=== PATIENT | female | born 1960 | race Hispanic/Latino ===

== ENCOUNTER 2018-08-04 12:56 | Emergency (ER) | payer BC ==
[2018-08-04] MEDS ORDERED: ONDANSETRON 4 MG/2 ML VIAL ONE (13:54)
[2018-08-04] MEDS ORDERED: DIAZEPAM 10 MG/2 ML INJ SYRINGE ONE (13:54)
[2018-08-04] MEDS ORDERED: MORPHINE 2 MG/ML SYR ONE (13:54)
[2018-08-04 14:25] LABS: Absolute Lymphocytes (CBC) 3.2 K/uL (0.7-4.9); Absolute Monocytes 0.7 K/uL (0.1-1.3); Basophils % 0.9 % (0-1.3); Eosinophils % 2.3 % (0-4.4); Hematocrit 50.5 % (36.0-45.0); MPV 9.1 fL (7.6-11.3); Monocytes % 10.2 % (3.3-12.3); RBC Red Blood Cell Count 5.31 M/uL (3.86-4.86)
[2018-08-04] MEDS ORDERED: DEXAMETHASONE 4 MG/ML VIAL ONE (14:45)
[2018-08-04] MEDS ORDERED: FENTANYL CITR 100 MCG/2 ML ONE (15:44)
--- NOTE | 2018-08-04 16:29 | RAD REPORT ---
EXAM DESCRIPTION: CT - Abdomen Pelvis W Contrast - 08/04/2018 4:15 pm CLINICAL HISTORY: Back pain, abdominal pain COMPARISON: CT February 2012 TECHNIQUE: Biphasic, helical CT imaging of the abdomen and pelvis was performed following 100 ml non -ionic IV contrast. No oral contrast given. All CT scans are performed using dose optimization technique as appropriate and may include automated exposure control or mA/KV adjustment according to patient size. FINDINGS: Posterior gutter stranding favored to be atelectasis rather than interstitial infiltrate. No pneumothorax or pleural effusion. No cardiomegaly or pericardial effusion. The liver, spleen, and pancreas show no suspicious findings. Gallbladder and biliary tree are also wi thout suspicious finding. Symmetric renal function is seen with no hydronephrosis or suspicious renal mass. No pyelonephritis o r acute parenchymal process. Small renal cysts are present. No urinary bladder abnormality. Uterus is absent. Ovaries are absent or atrophic. No adnexal abnormalities. No adrenal abnormalities. No gastric wall thickening or mass identifiable. There are multiple prominent but nondilated small alessandro wel loops. No acute colon finding. Appendectomy clips are present. Sigmoid is tortuous. No free air, free fluid or inflammatory stranding. No mass or bulky lymphadenopathy. A very small fat only umbil ical hernia is present. Minimal scattered vascular calcifications are present. No acute bone findings seen. Patient does have a very large L3-4 disc herniation causing significant mass effect on the thecal sac and central spinal stenosis. There is a probable disc bulge at L2-3 as well. IMPRESSION: Mildly prominent small bowel loops suggesting infectious/inflammatory enteritis. Very large L3-4 disc herniation causing central spinal stenosis.
[2018-08-04 16:43] LABS: ALT/SGPT 15 U/L (12-78); AST/SGOT 18 U/L (15-37); Albumin 3.7 g/dL (3.4-5.0); Alkaline Phosphatase 79 U/L (45-117); BUN Blood Urea Nitrogen 15 mg/dL (7-18); Bicarbonate 25 mmol/L (21-32); Bilirubin Direct 0.1 mg/dL (0-0.2); Bilirubin Total 0.3 mg/dL (0.2-1.0); Glucose Level 83 mg/dL (74-106); Lipase 87 U/L (73-393); Potassium 4.1 mmol/L (3.5-5.1); Protein, Total 7.2 g/dL (6.4-8.2); Sodium Level 141 mmol/L (136-145)
[2018-08-04] MEDS ORDERED: HYDROMORPHONE HCL 2 MG/ML inj ONE (17:03)
[2018-08-04] MEDS ORDERED: KETOROLAC 30 MG/ML INJ ONE (17:23)
--- NOTE | 2018-08-04 18:37 | EDPHYS ---
Physician Documentation [facility] Name: Genesis Villa Age: 57 yrs Sex: Female : 1960 Arrival Date: 08/04/2018 Time: 12:59 Bed 26 Private MD: ED Physician Otto Holt HPI: 08/04 13:34 This 57 yrs old Female presents to ER via EMS with complaints of Back Pain. jmm 13:34 The patient presents with pain that is acute. Onset: The symptoms/episode jmm began/occurred gradually, 3 week(s) ago. The pain radiates to the left leg. Associated signs and symptoms: Pertinent positives: weakness, Pertinent negatives: incontinence, numbness, urinary retention. This is a 57 year old female with a history of chronic back pain that presents to the ED with complaints of progressively worsening lower back pain over the past 3 weeks. Yesterday patient states she was unable to walk due to pain. Today she felt a pop in her back with intense pressure sensation. Patient states 2 years prior having a laser spine surgery performed in [place]. . Historical: - Allergies: 13:27 No Known Allergies; la1 - Home Meds: 13:27 None [Active]; la1 - PMHx: 13:28 None; la1 - Immunization history:: Adult Immunizations up to date. - Social history:: Smoking status: unknown. - Ebola Screening: : No symptoms or risks identified at this time. ROS: 13:34 Constitutional: Negative for fever, chills, and weight loss, Cardiovascular: Negative jmm for chest pain, palpitations, and edema, Respiratory: Negative for shortness of breath, cough, wheezing, and pleuritic chest pain, Abdomen/GI: Negative for abdominal pain, nausea, vomiting, diarrhea, and constipation. 13:34 Back: Positive for pain with movement. 13:34 MS/extremity: Positive for pain. 13:34 All other systems are negative. Exam: 13:34 Constitutional: This is a well developed, well nourished patient who is awake, alert, jmm and in no acute distress. Head/Face: atraumatic. Eyes: EOMI, no conjunctival erythema appreciated ENT: Moist Mucus Membranes Neck: Trachea midline, Supple Chest/axilla: Normal chest wall appearance and motion. Cardiovascular: Regular rate and rhythm. No edema appreciated Respiratory: Normal respirations, no respiratory distress appreciated Abdomen/GI: Non distended, soft 13:34 Back: pain, that is severe, ROM is painful, vertebral tenderness, is appreciated at L1, L2, L3 and L4. 13:34 Musculoskeletal/extremity: ROM: intact in all extremities, Pulses: noted to be 4+ in the right dorsalis pedis artery and left dorsalis pedis artery. 13:34 Skin: Appearance: Color: normal in color. 13:34 Neuro: Orientation: is normal, Mentation: is normal, Memory: is normal, 2+ right patellar reflex, no patellar reflex appreciated to the left, extensor hallucis longus intact bilaterally, normal rectal tone, no saddle paresthesias appreciated. 13:34 Psych: Behavior/mood is pleasant, cooperative. Vital Signs: 13:26 BP 129 / 90; Pulse 76; Resp 18; Pulse Ox 98% on R/A; la1 14:30 BP 138 / 71; Pulse 73; Resp 18; Temp 97.6; Pulse Ox 98% ; la1 15:37 BP 106 / 82; Pulse 82; Resp 18; Pulse Ox 98% on R/A; la1 17:21 BP 121 / 95; Pulse 72; Resp 18; Pulse Ox 98% on R/A; la1 MDM: 13:34 Patient medically screened. [facility] 17:56 Data reviewed: vital signs, nurses notes. Counseling: I had a detailed discussion with [facility] the patient and/or guardian regarding: the historical points, exam findings, and any diagnostic results supporting the discharge/admit diagnosis. 18:19 ED course: I discussed the patient with Neurology whom will consult on admission. I [facility] discussed the patient with Dr. Jones whom accepted admission/transfer. . 18:34 Data reviewed: lab test result(s), radiologic studies, CT scan. Counseling: I had a [facility] detailed discussion with the patient and/or guardian regarding: lab results, radiology results, the need to transfer to another facility. 08/04 13:35 Order name: Basic Metabolic Panel; Complete Time: 16:47 [facility] 08/04 13:35 Order name: CBC with Diff; Complete Time: 14:53 [facility] 08/04 13:35 Order name: Creatinine for Radiology; Complete Time: 14:45 [facility] 08/04 13:35 Order name: Hepatic Function; Complete Time: 16:47 [facility] 08/04 13:35 Order name: Lipase; Complete Time: 16:47 [facility] 08/04 13:35 Order name: CT Abd/Pelvis - W/Contrast; Complete Time: 16:31 [facility] 08/04 13:35 Order name: IV Saline Lock; Complete Time: 13:52 [facility] 08/04 13:35 Order name: Labs collected and sent; Complete Time: 13:52 [facility] 08/04 17:23 Order name: Misc. Order: ambulate the patient; Complete Time: 18:31 [facility] Administered Medications: 13:51 Drug: Valium 5 mg Route: IVP; Site: left antecubital; la1 14:43 Follow up: Response: No adverse reaction; Pain is decreased la1 13:52 Drug: Zofran 4 mg Route: IVP; Site: left antecubital; la1 14:43 Follow up: Response: No adverse reaction la1 14:21 Drug: morphine 2 mg Route: IVP; Site: left antecubital; la1 14:43 Follow up: Response: No adverse reaction la1 14:43 Drug: Decadron - Dexamethasone 10 mg Route: IVP; Site: left antecubital; la1 14:43 Follow up: Response: No adverse reaction la1 16:02 Drug: fentaNYL (PF) 50 mcg Route: IVP; Site: left antecubital; la1 17:22 Follow up: Response: No adverse reaction; Pain is decreased la1 16:56 Drug: Dilaudid 1 mg Route: IVP; Site: left antecubital; rv 17:22 Follow up: Response: No adverse reaction; Pain is decreased la1 17:15 Drug: Ketorolac 30 mg Route: IVP; Site: left antecubital; sg 17:22 Follow up: Response: No adverse reaction; Pain is decreased la1 19:32 Drug: fentaNYL (PF) 50 mcg Route: IVP; Site: left antecubital; la1 Disposition: 08/04/18 18:37 Transfer ordered to [facility]. Diagnosis are Sciatica, left side, Weakness, Intractable Pain. - Reason for transfer: Higher level of care. - Accepting physician is Kumal. - Condition is Stable. - Problem is an acute exacerbation. - Symptoms are unchanged. Addendum: 08/06/2018 07:48 Co-signature as Attending Physician, Otto Jonathon MD I agree with the assessment and c saleh plan of care. Signatures: Dispatcher [employer] EDRamiro Corral, RN RN Otto Ramirez MD MD cha Mickail, Joel, PA PA jmm Chretien, Felicia, RN RN fc Bryon Saenz RN RN la1 Carlo Wilder RN RN rv Corrections: (The following items were deleted from the chart) 08/04 20:15 18:37 08/04/2018 18:37 Transfer ordered to [facility]. Diagnosis is fc Sciatica, left side; Weakness; Intractable Pain. Reason for transfer: Higher level of care. [facility] Condition is Stable. Problem is an acute exacerbation. Symptoms are unchanged. alex
--- NOTE | 2018-08-04 18:37 | ER ---
Nurse's Notes [facility] Name: Genesis Villa Age: 57 yrs Sex: Female : 1960 Arrival Date: 08/04/2018 Time: 12:59 Bed 26 Private MD: Diagnosis: Sciatica, left side;Weakness;Intractable Pain Presentation: 08/04 12:59 Presenting complaint: Patient states: I had back sx on my right lower back one year la1 ago, about 3 weeks ago I did something to it while walking and it has been hurting since. Pt has been taking T3 at home but not having any relief. Transition of care: patient was not received from another setting of care. Onset of symptoms was August 04, 2018. Risk Assessment: Do you want to hurt yourself or someone else? Patient reports no desire to harm self or others. Initial Sepsis Screen: Does the patient meet any 2 criteria? No. Patient's initial sepsis screen is negative. Does the patient have a suspected source of infection? No. Patient's initial sepsis screen is negative. Care prior to arrival: IV initiated. 22 GA, in the left antecubital area. 12:59 Method Of Arrival: EMS: [facility] la1 12:59 Acuity: SCOTT 3 la1 Historical: - Allergies: 13:27 No Known Allergies; la1 - Home Meds: 13:27 None [Active]; la1 - PMHx: 13:28 None; la1 - Immunization history:: Adult Immunizations up to date. - Social history:: Smoking status: unknown. - Ebola Screening: : No symptoms or risks identified at this time. Screenin:04 Abuse screen: Denies threats or abuse. Denies injuries from another. Nutritional la1 screening: No deficits noted. Tuberculosis screening: No symptoms or risk factors identified. Fall Risk None identified. Assessment: 14:03 General: Appears in no apparent distress. Behavior is cooperative. Pain: Complains of la1 pain in lumbar area and right low back. Neuro: Level of Consciousness is awake, alert, obeys commands, Oriented to person, place, time, situation. Neuro: Pt denies loss of urinary or bowel continence, denies numbness, tingling, CMS intact. Cardiovascular: Capillary refill < 3 seconds Patient's skin is warm and dry. Respiratory: Airway is patent Respiratory effort is even, unlabored, Respiratory pattern is regular, symmetrical. GI: No signs and/or symptoms were reported involving the gastrointestinal system. : No signs and/or symptoms were reported regarding the genitourinary system. 15:05 Reassessment: No changes from previously documented assessment. Patient and/or family la1 updated on plan of care and expected duration. Pain level reassessed. Patient is alert, oriented x 3, equal unlabored respirations, skin warm/dry/pink. 17:21 Reassessment: Patient appears in no apparent distress at this time. No changes from la1 previously documented assessment. Patient and/or family updated on plan of care and expected duration. Pain level reassessed. Patient is alert, oriented x 3, equal unlabored respirations, skin warm/dry/pink. 18:30 Reassessment: Pt unable to ambulate in room due to pain. CMS intact in all extremities. la1 Vital Signs: 13:26 BP 129 / 90; Pulse 76; Resp 18; Pulse Ox 98% on R/A; la1 14:30 BP 138 / 71; Pulse 73; Resp 18; Temp 97.6; Pulse Ox 98% ; la1 15:37 BP 106 / 82; Pulse 82; Resp 18; Pulse Ox 98% on R/A; la1 17:21 BP 121 / 95; Pulse 72; Resp 18; Pulse Ox 98% on R/A; la1 ED Course: 12:59 Patient arrived in ED. la1 13:00 Triage completed. la1 13:00 Arm band placed on left wrist. la1 13:16 [facility] Hutchison [facility] 13:16 Otto Holt MD is Attending Physician. jm 13:26 Bryon Saenz, MIR is Primary Nurse. la1 14:04 Bed in low position. Call light in reach. finger grip machine operator on. Pulse ox on. NIBP on. la1 14:04 Maintain EMS IV. Dressing intact. Good blood return noted. Site clean \T\ dry. Gauge \T\ la 1 site: 22g lac. 15:39 Radiology exam delayed due to lab results not completed at this time. (BUN/Creatinine). kw1 16:15 CT Abd/Pelvis - W/Contrast In Process Unspecified. EDMS 16:24 CT completed. Patient tolerated procedure well. Patient moved back from CT. mw3 18:30 Bladder scan completed. 277cc pre void, 0 cc post void. la1 Administered Medications: 13:51 Drug: Valium 5 mg Route: IVP; Site: left antecubital; la1 14:43 Follow up: Response: No adverse reaction; Pain is decreased la1 13:52 Drug: Zofran 4 mg Route: IVP; Site: left antecubital; la1 14:43 Follow up: Response: No adverse reaction la1 14:21 Drug: morphine 2 mg Route: IVP; Site: left antecubital; la1 14:43 Follow up: Response: No adverse reaction la1 14:43 Drug: Decadron - Dexamethasone 10 mg Route: IVP; Site: left antecubital; la1 14:43 Follow up: Response: No adverse reaction la1 16:02 Drug: fentaNYL (PF) 50 mcg Route: IVP; Site: left antecubital; la1 17:22 Follow up: Response: No adverse reaction; Pain is decreased la1 16:56 Drug: Dilaudid 1 mg Route: IVP; Site: left antecubital; rv 17:22 Follow up: Response: No adverse reaction; Pain is decreased la1 17:15 Drug: Ketorolac 30 mg Route: IVP; Site: left antecubital; sg 17:22 Follow up: Response: No adverse reaction; Pain is decreased la1 19:32 Drug: fentaNYL (PF) 50 mcg Route: IVP; Site: left antecubital; la1 Outcome: 18:37 ER care complete, transfer ordered by MD. johnson 20:15 Patient left the ED. fc Signatures: Dispatcher [employer] EDMS Ramiro Thacker RN Nolan Hurley PA PA jmm Chretien, Felicia, RN RN Bryon Saenz RN RN Katharine Longo Michelle mw3 Carlo Wilder RN RN rv
[2018-08-04 20:30] VITALS: O2SAT 98
[2018-08-04 20:32] VITALS: TEMP 97.6
[2018-08-04 20:34] VITALS: BP 121/95
== END 2018-08-04 20:15 | disposition short-term general hospital (02) ==
LOC: ER 12:56
DX: M54.32 Sciatica, left side (principal); R53.1 Weakness
CPT/HCPCS: 36415; 74177; 80048; 80076; 83690; 85025; 96374; 96375; 99285; J1170; J2270; J2405; J3010; J3360

== ENCOUNTER 2019-09-20 19:12 | Emergency (ER) | payer BC ==
--- OUTSIDE RECORDS SUMMARY | 2019-09-20 19:16 | XMS REPORT ---
:1960 Author Organization [facility] t Address [address] [place] [address] Care Team Providers Name Role Phone AYLEEN BUCIO Unavailable Unavailable Problems This patient has no known problems. Allergies, Adverse Reactions, Alerts This patient has no known allergies or adverse reactions. Medications This patient has no known medications. Results Test Description Test Time Test Comments Text Results Atomic Results Result Comments RAD, SPINE, 2018-12-31 Reason for FINAL REPORT PATIENT ID: LUMBAR, COMPLETE 11:13:00 Exam:->lumbar [id number] Exam: Lumbar (MIN 4 VIEWS) radiculopathy spine AP lateral flexion-extension History: Back pain Comparison: None. Findings: No fracture. Degenerative disc disease at L3-L4 extending to L5-S1, most prominent at L4-L5. Lower lumbar facet arthrosis. No hypermobility on flexion-extension. Impression: No acute osseous abnormality Lumbar spondyloarthropathy most advanced at L4-L5 Signed: Caio Whitney Verified Date/Time: 12/31/2018 11:13:38 Reading Location: [facility] Reading Room [address] [place] [address] LE EMG, 2 2018-10-24 EXTREMITY 15:58:00 INTRAOPERATIVE MONITORING REPORT Patient Name: Genesis Villa [facility] Surgery Date: 08/07/18 [place] Pro: [id number] Monitoring began at 1517 and ended at 1645 Surgeon: Franky Bell M.D. Examining Physician : Stanley Rodriguez M.D. Monitoring Technologist: THO Castillo Procedure: L3-4 Lami/Disc Free-running EMG of bilateral Vastus Lateralis (L2-4) and Tibialis Anterior (L4-L5) muscle groups Description : Intraoperative neurophysiological monitoring was performed using free-running EMGs. A real-time connection with the examining neurologist was established and maintained throughout the operative procedure by the monitoring technologist. Free-running EMG of L2-L5 nerve roots was monitored with no firing seen in any muscle groups at baselines. Some sporadic EMG firing was seen during case; surgeon aware. At closing, no firing seen in any muscle groups. No changes were noted from baselines throughout the case and at closing. Surgeon aware of all responses during case and at closing. Stanley Rodriguez M.D. M54.16, M54.10, M79.2 UE EXAM 2018-08-16 Surgical Pathology Report 19:02:00 Case: [id number] Authorizing Provider: Franky Bell MD Collected: 08/07/2018 1645 Ordering Location: [facility] PERIOPERATIVE Received: 08/08/2018 0814 SERVICES Pathologist: Kelvin Palencia MD Specimen: Disc L3-4 VERTEBRAL COLUMN, INTERVERTEBRAL DISC, DISCECTOMY:FRAGMENTS OF FIBROCARTILAGE WITH MILD DEGENERATIVE CHANGES Signing Pathologist Direct Phone Line: [phone] signed by Kelvin Palencia MD on 08/16/2018 at 7:02 [id number]; [id number] nucleus pulposus of the lumbar A. Disc L3-4The specimen is received in saline labeled with the patient's information and labeled "disc L3-4" and consists of coronado-pink fibrocartilaginous tissue measuring 3 x 1 x 1 cm . The specimen is sectioned and submitted entirely A1 for decalcification. CG/pl Performed BASIC METABOLIC PANEL 2018-08-09 04:56:00 Test Item Value Reference Range Comments SODIUM (BEAKER) (test code = 140 meq/L 136-145 381) POTASSIUM (BEAKER) (test 3.9 meq/L 3.5-5.1 code = 379) CHLORIDE (BEAKER) (test code 108 meq/L 98-107 = 382) CO2 (BEAKER) (test code = 26 meq/L 22-29 355) BLOOD UREA NITROGEN (BEAKER) 17 mg/dL 7-21 (test code = 354) CREATININE (BEAKER) (test 0.63 mg/dL 0.57-1.25 code = 358) GLUCOSE RANDOM (BEAKER) 96 mg/dL 70-105 (test code = 652) CALCIUM (BEAKER) (test code 9.1 mg/dL 8.4-10.2 = 697) EGFR (BEAKER) (test code = 97 mL/min/1.73 sq m E STIMATED GFR IS NOT 1092) ACCURATE CREA TININE CLEARANCE IN PRE DICTING GLOMERULAR FILTR ATION RATE. ESTIMATED GFR IS NOT APPLICABLE FOR D IALYSIS PATIENTS. CBC (HEMOGRAM ONLY)2018-08-09 04:39:00 Test Item Value Reference Range Comments WHITE BLOOD CELL COUNT (BEAKER) (test code = 11.8 K/ L 3.5 -10.5 775) RED BLOOD CELL COUNT (BEAKER) (test code = 761) 4.76 M/ L 3.93-5.22 HEMOGLOBIN (BEAKER) (test code = 410) 15.2 GM/DL 11.2-15.7 HEMATOCRIT (BEAKER) (test code = 411) 44.9 % 34.1-44.9 MEAN CORPUSCULAR VOLUME (BEAKER) (test code = 94.3 fL 79 .4-94.8 753) MEAN CORPUSCULAR HEMOGLOBIN (BEAKER) (test code 31.9 pg 25.6-32.2 = 751) MEAN CORPUSCULAR HEMOGLOBIN CONC (BEAKER) (test 33.9 GM/DL 32.2-35.5 code = 752) RED CELL DISTRIBUTION WIDTH (BEAKER) (test code 14.0 % 11.7-14.4 = 412) PLATELET COUNT (BEAKER) (test code = 756) 220 K/CU MM 150-45 0 MEAN PLATELET VOLUME (BEAKER) (test code = 754) 10.2 fL 9.4-12.3 NUCLEATED RED BLOOD CELLS (BEAKER) (test code = 0 /100 WBC 0-0 413) RAD, SPINE, LUMBAR, 1 [id number] 16:51:00Reason for exam:->lumbar spine FINAL REPORT TECHNIQUE: Lateral view of the lumbosacral spine dated 08/07/2018. HISTORY: Lumbar spine. COMPARISON: None. Impression:Intraoperative radiograph of the lumbosacral spine was obtained. There is a radiodense marker projects over the spinous process at the level of L3-L4. No fracture or malalignment. Bones appear osteopenic. Signed: Iván Fermin MDReport Verified Date/Time: 08/07/2018 16:51:07 Reading Location: [facility] Radiology Reading Room RAD, SPINE, LUMBAR, 1 [id number] 16:13:00Reason for exam:->lumbar spineFINAL REPORT Lumbar spine date 08/07/2018 Comment: Single view of the lumbar spine was submitted for interpretation.A metallic localizer is at L3-4 vertebral level. I was not able to reach Dr. Bell for Stat reading. Signed: Samson Rueda MDReport Verified Date/Time: 08/07/2018 16:13:28 Reading Location: [facility] B1 C013Y CT Body Reading Room , CARDIAC PERFUSION MULTIPLE STUDIES, REST AND [id number] 13:55:00 Reason for exam:->chest painReason for exam:->pre-operative evaluation for back surgeryFINAL REPORT PROCEDURE: Rest/Stress MYOCARDIAL PERFUSION PET with regadenoson\\XA9\\ CPT CODE: 38637 INDICATION: Chest pain. Preoperative risk stratification for spinalsurgery/laminectomy HISTORY: Cardiac risk factors: Tobacco abuse. Other cardiovascular history: History of myocardial infarction. Recent cardiac symptoms: Chest pain. Current cardiovascular-relatedmedications: Lipitor. PROTOCOL: Limited low-dose CT imaging was performed for attenuation correction. 23.4 mCi of Rb-82 chloride was injected iv at rest. Given infiltration another dose of 40.0 mCiof Rb--82 chloride was injected at rest, and gated PET (positron emission tomography) images were obtained. Subsequently, 40.0 mCi of Rb-82 chloride was injected iv at expected peak pharmacologic effect, and gated PET images were obtained. PRELIMINARY STRESS TEST DATA FROM NONINVASIVE CARDIOLOGY:Pharmacologic stress was by 10-second iv infusion of 0.4 mg of regadenoson. Radiotracer was injected 30 seconds after start of stress. Heart rate was 79 beats/min at rest and 105 beats/min (64% of MPHR) at tracer injection. BP was 118/77 mmHg at rest and 138/82 mmHg at tracer injection. Stress was stopped for predetermined endpoint. The patient experienced dyspnea and palpitations; treatment was not required. Preliminary ECG evaluation revealed sinus rhythm at rest and no ischemic changes with stress. (Final ECG interpretation and other stress and monitoring data are reported separately by Cardiology.) IMAGING FINDINGS: Study quality is good. Images obtained after rest and stress injections show normal LV activity. LV and RV volumes appear normal. Gated images obtained at rest and with stress show normal LV wall motion and thickening. LVEF at rest is greater than 70%. LVEF at stress is greater than 70%. IMPRESSION: 1. Normal study. 2. Appropriate pharmacologic stress. 3. Normal myocardial perfusion. 4. Normal resting LV function. No deterioration of function is noted with pharmacologic stress. 5. Normal extracardiac tracer distribution. 6. CT images show small bilateral pleural effusions 7. No previous [facility] study for comparison. NONINVASIVE RISK STRATIFICATION: The above findings are considered low risk (<1% annual mortality rate) based on the following criterion:- Normal or small myocardial perfusion defect at rest or with stress(JACC. 2012;59(9):857- 81.) Signed: Danilo Mackey MDReport Verified Date/Time: 08/07/2018 13:55:17 Reading Location: [address] Reading Room CBC W/PLT COUNT & AUTO [id number] 06:55:00 Test Item Value Reference Range Comments WHITE BLOOD CELL COUNT 8.9 K/ L 3.5-10.5 (BEAKER) (test code = 775) RED BLOOD CELL COUNT (BEAKER) 4.82 M/ L 3.93-5.22 (test code = 761) HEMOGLOBIN (BEAKER) (test code 15.1 GM/DL 11.2-15.7 = 410) HEMATOCRIT (BEAKER) (test code 49.4 % 34.1-44.9 = 411) MEAN CORPUSCULAR VOLUME 102.5 fL 79.4-94.8 DISCORDA NT FROM PREVIOUS (BEAKER) (test code = 753) RESUL TS MEAN CORPUSCULAR HEMOGLOBIN 31.3 pg 25.6-32.2 (BEAKER) (test code = 751) MEAN CORPUSCULAR HEMOGLOBIN 30.6 GM/DL 32.2-35.5 CONC (BEAKER) (test code = 752) RED CELL DISTRIBUTION WIDTH 14.3 % 11.7-14.4 (BEAKER) (test code = 412) PLATELET COUNT (BEAKER) (test 191 K/CU MM 150-450 code = 756) MEAN PLATELET VOLUME (BEAKER) 10.0 fL 9.4-12.3 (test code = 754) NUCLEATED RED BLOOD CELLS 0 /100 WBC 0-0 (BEAKER) (test code = 413) NEUTROPHILS RELATIVE PERCENT 39 % (BEAKER) (test code = 429) LYMPHOCYTES RELATIVE PERCENT 50 % (BEAKER) (test code = 430) MONOCYTES RELATIVE PERCENT 8 % (BEAKER) (test code = 431) EOSINOPHILS RELATIVE PERCENT 2 % (BEAKER) (test code = 432) BASOPHILS RELATIVE PERCENT 1 % (BEAKER) (test code = 437) NEUTROPHILS ABSOLUTE COUNT 3.46 K/ L 1.56-6.13 (BEAKER) (test code = 670) LYMPHOCYTES ABSOLUTE COUNT 4.45 K/ L 1.18-3.74 (BEAKER) (test code = 414) MONOCYTES ABSOLUTE COUNT 0.73 K/ L 0.24-0.36 (BEAKER) (test code = 415) EOSINOPHILS ABSOLUTE COUNT 0.21 K/ L 0.04-0.36 (BEAKER) (test code = 416) BASOPHILS ABSOLUTE COUNT 0.07 K/ L 0.01-0.08 (BEAKER) (test code = 417) IMMATURE GRANULOCYTES-RELATIVE 0 % 0-1 PERCENT (BEAKER) (test code = 2801) BASIC METABOLIC [id number] 06:22:00 Test Item Value Reference Range Comments SODIUM (BEAKER) (test 139 meq/L 136-145 code = 381) POTASSIUM (BEAKER) (test 4.7 meq/L 3.5-5.1 Specime n slightly code = 379) hemolyzed CHLORIDE (BEAKER) (test 110 meq/L 98-107 code = 382) CO2 (BEAKER) (test code = 23 meq/L 22-29 355) BLOOD UREA NITROGEN 11 mg/dL 7-21 (BEAKER) (test code = 354) CREATININE (BEAKER) (test 0.58 mg/dL 0.57-1.25 Specim en slightly code = 358) hemolyzed GLUCOSE RANDOM (BEAKER) 71 mg/dL 70-105 (test code = 652) CALCIUM (BEAKER) (test 8.9 mg/dL 8.4-10.2 code = 697) EGFR (BEAKER) (test code 107 mL/min/1.73 sq m ES TIMATED GFR IS NOT = 1092) ACCURATE CREA TININE CLEARANCE IN PRE DICTING GLOMERULAR FILTR ATION RATE. ESTIMATED GFR IS NOT APPLICABLE F OR DIALYSIS PATIENT S. HEPATIC FUNCTION [id number] 06:22:00 Test Item Value Reference Range Comments TOTAL PROTEIN (BEAKER) (test 6.0 gm/dL 6.0-8.3 Spe cimen slightly hemolyzed code = 770) ALBUMIN (BEAKER) (test code = 3.3 g/dL 3.5-5.0 Sp ecimen slightly hemolyzed 1145) BILIRUBIN TOTAL (BEAKER) (test 0.2 mg/dL 0.2-1.2 S pecimen slightly hemolyzed code = 377) BILIRUBIN DIRECT (BEAKER) (test 0.1 mg/dL 0.1-0.5 Specimen slightly hemolyzed code = 706) ALKALINE PHOSPHATASE (BEAKER) 54 U/L 40-150 (test code = 346) AST (SGOT) (BEAKER) (test code 23 U/L 5-34 S pecimen slightly hemolyzed = 353) ALT (SGPT) (BEAKER) (test code 11 U/L 6-55 S pecimen slightly hemolyzed = 347) [id number] 06:16:00 Test Item Value Reference Range Comments PARTIAL THROMBOPLASTIN TIME (BEAKER) (test code 30.8 seconds 22.5-36.0 = 760) PROTHROMBIN [id number] 06:15:00 Test Item Value Reference Range Comments PROTIME (BEAKER) (test code = 759) 12.2 seconds 11.7-14.7 INR (BEAKER) (test code = 370) 0.9 <=5.9 RECOMMENDED COUMADIN/WARFARIN INR THERAPY RANGESSTANDARD DOSE: 2.0 - 3.0 Includes: PROPHYLAXIS forvenous thrombosis, systemic embolization; TREATMENT for venous thrombosis and/or pulmonary embolus.HIGH RISK: Target INR is 2.5-3.5 for patients with mechanical heart valves.B-TYPE NATRIURETIC FACTOR (BNP)2018-08-06 18:42:00 Test Item Value Reference Range Comments B-TYPE NATRIURETIC PEPTIDE (BEAKER) (test code = 189 pg/mL 0-100 700) CBC W/PLT COUNT & AUTO [id number] 09:46:00 Test Item Value Reference Range Comments WHITE BLOOD CELL COUNT (BEAKER) (test code = 11.4 K/ L 3.5 -10.5 775) RED BLOOD CELL COUNT (BEAKER) (test code = 761) 4.51 M/ L 3.93-5.22 HEMOGLOBIN (BEAKER) (test code = 410) 14.5 GM/DL 11.2-15.7 HEMATOCRIT (BEAKER) (test code = 411) 43.7 % 34.1-44.9 MEAN CORPUSCULAR VOLUME (BEAKER) (test code = 96.9 fL 79 .4-94.8 753) MEAN CORPUSCULAR HEMOGLOBIN (BEAKER) (test code 32.2 pg 25.6-32.2 = 751) MEAN CORPUSCULAR HEMOGLOBIN CONC (BEAKER) (test 33.2 GM/DL 32.2-35.5 code = 752) RED CELL DISTRIBUTION WIDTH (BEAKER) (test code 14.2 % 11.7-14.4 = 412) PLATELET COUNT (BEAKER) (test code = 756) 209 K/CU MM 150-45 0 MEAN PLATELET VOLUME (BEAKER) (test code = 754) 10.0 fL 9.4-12.3 NUCLEATED RED BLOOD CELLS (BEAKER) (test code = 0 /100 WBC 0-0 413) (CELLAVISION MANUAL DIFF)2018-08-06 09:46:00 Test Item Value Reference Range Comments NEUTROPHILS - REL (CELLAVISION)(BEAKER) (test code 62 % = 2816) LYMPHOCYTES - REL (CELLAVISION)(BEAKER) (test code 30 % = 2817) MONOCYTES - REL (CELLAVISION)(BEAKER) (test code = 5 % 2818) BASOPHILS - REL (CELLAVISION)(BEAKER) (test code = 1 % 2820) ATYPICAL LYMPHOCYTES - REL (CELLAVISION)(BEAKER) 2 % 0-0 (test code = 2829) NEUTROPHILS - ABS (CELLAVISION)(BEAKER) (test code 7.07 K/ul 1.56-6.13 = 2830) LYMPHOCYTES - ABS (CELLAVISION)(BEAKER) (test code 3.42 K/ul 1.18-3.74 = 2831) MONOCYTES - ABS (CELLAVISION)(BEAKER) (test code = 0.57 K/uL 0.24-0.36 2832) BASOPHILS - ABS (CELLAVISION)(BEAKER) (test code = 0.11 K/uL 0.01-0.08 2835) ATYPICAL LYMPHOCYTES - ABS (CELLAVISION)(BEAKER) 0.23 K/uL 0.00-0.00 (test code = 2858) TOTAL COUNTED (BEAKER) (test code = 1351) 100 RBC MORPHOLOGY (BEAKER) (test code = 762) Normal WBC MORPHOLOGY (BEAKER) (test code = 487) Normal PLT MORPHOLOGY (BEAKER) (test code = 486) Normal ARTIFACT (CELLAVISION)(BEAKER) (test code = 3432) Present PLATELET CONCENTRATION (CELLAVISION)(BEAKER) (test Adequate code = 3438) Received comment: User comments: Slide comments:BASIC METABOLIC [id number] 05:47:00 Test Item Value Reference Range Comments SODIUM (BEAKER) (test 135 meq/L 136-145 code = 381) POTASSIUM (BEAKER) (test 3.9 meq/L 3.5-5.1 code = 379) CHLORIDE (BEAKER) (test 108 meq/L 98-107 code = 382) CO2 (BEAKER) (test code = 22 meq/L 22-29 355) BLOOD UREA NITROGEN 13 mg/dL 7-21 (BEAKER) (test code = 354) CREATININE (BEAKER) (test 0.57 mg/dL 0.57-1.25 code = 358) GLUCOSE RANDOM (BEAKER) 101 mg/dL 70-105 (test code = 652) CALCIUM (BEAKER) (test 8.3 mg/dL 8.4-10.2 code = 697) EGFR (BEAKER) (test code 109 mL/min/1.73 sq m ES TIMATED GFR IS NOT = 1092) ACCURATE CREA TININE CLEARANCE IN PRE DICTING GLOMERULAR FILTR ATION RATE. ESTIMATED GFR IS NOT APPLICABLE F OR DIALYSIS PATIENT S. HEPATIC FUNCTION [id number] 05:45:00 Test Item Value Reference Range Comments TOTAL PROTEIN (BEAKER) (test code = 770) 5.6 gm/dL 6.0-8.3 ALBUMIN (BEAKER) (test code = 1145) 3.2 g/dL 3.5-5.0 BILIRUBIN TOTAL (BEAKER) (test code = 377) 0.1 mg/dL 0.2-1 .2 BILIRUBIN DIRECT (BEAKER) (test code = 706) 0.1 mg/dL 0.1- 0.5 ALKALINE PHOSPHATASE (BEAKER) (test code = 346) 55 U/L 40-150 AST (SGOT) (BEAKER) (test code = 353) 15 U/L 5-34 ALT (SGPT) (BEAKER) (test code = 347) 9 U/L 6-55 PROTHROMBIN [id number] 05:35:00 Test Item Value Reference Range Comments PROTIME (BEAKER) (test code = 759) 12.8 seconds 11.7-14.7 INR (BEAKER) (test code = 370) 1.0 <=5.9 RECOMMENDED COUMADIN/WARFARIN INR THERAPY RANGESSTANDARD DOSE: 2.0 - 3.0 Includes: PROPHYLAXIS forvenous thrombosis, systemic embolization; TREATMENT for venous thrombosis and/or pulmonary embolus.HIGH RISK: Target INR is 2.5-3.5 for patients with mechanical heart valves.HEPATIC FUNCTION [id number] 06:43:00 Test Item Value Reference Range Comments TOTAL PROTEIN (BEAKER) (test code = 770) 6.7 gm/dL 6.0-8.3 ALBUMIN (BEAKER) (test code = 1145) 3.7 g/dL 3.5-5.0 BILIRUBIN TOTAL (BEAKER) (test code = 377) 0.3 mg/dL 0.2-1 .2 BILIRUBIN DIRECT (BEAKER) (test code = 706) 0.1 mg/dL 0.1- 0.5 ALKALINE PHOSPHATASE (BEAKER) (test code = 346) 65 U/L 40-150 AST (SGOT) (BEAKER) (test code = 353) 20 U/L 5-34 ALT (SGPT) (BEAKER) (test code = 347) 10 U/L 6-55 BASIC METABOLIC [id number] 06:43:00 Test Item Value Reference Range Comments SODIUM (BEAKER) (test 140 meq/L 136-145 code = 381) POTASSIUM (BEAKER) (test 4.3 meq/L 3.5-5.1 code = 379) CHLORIDE (BEAKER) (test 108 meq/L 98-107 code = 382) CO2 (BEAKER) (test code = 24 meq/L 22-29 355) BLOOD UREA NITROGEN 22 mg/dL 7-21 (BEAKER) (test code = 354) CREATININE (BEAKER) (test 0.70 mg/dL 0.57-1.25 code = 358) GLUCOSE RANDOM (BEAKER) 136 mg/dL 70-105 (test code = 652) CALCIUM (BEAKER) (test 9.8 mg/dL 8.4-10.2 code = 697) EGFR (BEAKER) (test code 86 mL/min/1.73 sq m EST IMATED GFR IS NOT = 1092) ACCURATE CREA TININE CLEARANCE IN PRE DICTING GLOMERULAR FILTR ATION RATE. ESTIMATED GFR IS NOT APPLICABLE F OR DIALYSIS PATIENT S. [id number] 06:33:00 Test Item Value Reference Range Comments PARTIAL THROMBOPLASTIN TIME (BEAKER) (test code 31.2 seconds 22.5-36.0 = 760) PROTHROMBIN TIME/[id number] 06:32:00 Test Item Value Reference Range Comments PROTIME (BEAKER) (test code = 759) 12.7 seconds 11.7-14.7 INR (BEAKER) (test code = 370) 0.9 <=5.9 RECOMMENDED COUMADIN/WARFARIN INR THERAPY RANGESSTANDARD DOSE: 2.0 - 3.0 Includes: PROPHYLAXIS forvenous thrombosis, systemic embolization; TREATMENT for venous thrombosis and/or pulmonary embolus.HIGH RISK: Target INR is 2.5-3.5 for patients with mechanical heart valves.CBC W/PLT COUNT & AUTO DIFFERENTIAL 2018-08-05 06:13:00 Test Item Value Reference Range Comments WHITE BLOOD CELL COUNT (BEAKER) (test code = 10.1 K/ L 3.5 -10.5 775) RED BLOOD CELL COUNT (BEAKER) (test code = 761) 5.12 M/ L 3.93-5.22 HEMOGLOBIN (BEAKER) (test code = 410) 16.2 GM/DL 11.2-15.7 HEMATOCRIT (BEAKER) (test code = 411) 49.5 % 34.1-44.9 MEAN CORPUSCULAR VOLUME (BEAKER) (test code = 96.7 fL 79 .4-94.8 753) MEAN CORPUSCULAR HEMOGLOBIN (BEAKER) (test code 31.6 pg 25.6-32.2 = 751) MEAN CORPUSCULAR HEMOGLOBIN CONC (BEAKER) (test 32.7 GM/DL 32.2-35.5 code = 752) RED CELL DISTRIBUTION WIDTH (BEAKER) (test code 13.7 % 11.7-14.4 = 412) PLATELET COUNT (BEAKER) (test code = 756) 231 K/CU MM 150-45 0 MEAN PLATELET VOLUME (BEAKER) (test code = 754) 9.9 fL 9.4-12.3 NUCLEATED RED BLOOD CELLS (BEAKER) (test code = 0 /100 WBC 0-0 413) NEUTROPHILS RELATIVE PERCENT (BEAKER) (test code 80 % = 429) LYMPHOCYTES RELATIVE PERCENT (BEAKER) (test code 17 % = 430) MONOCYTES RELATIVE PERCENT (BEAKER) (test code = 2 % 431) EOSINOPHILS RELATIVE PERCENT (BEAKER) (test code 0 % = 432) BASOPHILS RELATIVE PERCENT (BEAKER) (test code = 0 % 437) NEUTROPHILS ABSOLUTE COUNT (BEAKER) (test code = 8.16 K/ L 1.56-6.13 670) LYMPHOCYTES ABSOLUTE COUNT (BEAKER) (test code = 1.71 K/ L 1.18-3.74 414) MONOCYTES ABSOLUTE COUNT (BEAKER) (test code = 0.22 K/ L 0 .24-0.36 415) EOSINOPHILS ABSOLUTE COUNT (BEAKER) (test code = 0.01 K/ L 0.04-0.36 416) BASOPHILS ABSOLUTE COUNT (BEAKER) (test code = 0.01 K/ L 0 .01-0.08 417) IMMATURE GRANULOCYTES-RELATIVE PERCENT (BEAKER) 0 % 0-1 (test code = 2801) MR, SPINE, LUMBAR, WITHOUT [id number] 04:09:00FINAL REPORT MR Lumbar spine without contrast CLINICAL HISTORY: Low back pain, cauda equina syndrome suspected TECHNIQUE: MRI of the lumbar spine utilizing sagittal T1, T2, STIR,axial T1 and T2-weighted sequences. COMPARISON: None FINDINGS:Heterogeneous marrow signal no discrete aggressive appearing lesions identified. Degenerative marrow signal within the inferior endplate ofL4 and L5 as well as superior endplates of L5 and S1. Vertebral body heights are maintained. There is maintenance of the lumbar curvature and alignment. The conus medullaris terminates at T12-L1 without abnormal signal. Multilevel degenerative changes with disc desiccation worse at L3-4 and L4-5.The thecal sac abruptly tapers posterior to the L5 vertebral body possibly related to prominent epidural lipomatosis at L5-S1. At L5-S1, central disc protrusion and bilateral facet hypertrophy. There is prominent epidural fat with the thecal sac terminating posterior to the L5 vertebral body. No significant neural foraminal stenosis. At L4-L5, broad-based disc bulge with facet hypertrophy resulting in no significant spinal canal or neural foraminal stenosis. At L3-L4, right paracentral disc protrusion results in mild spinal canal and moderate right lateral recess stenosis. The disc abuts the exiting right L4 nerve. No significant neural foraminal stenosis. At L2-L3, no spinal canal or neural foraminal stenosis. At L1-L2, no spinal canal or neural foraminal stenosis. At T12-L1, no spinal canal or neural foraminal stenosis. 5 mm T1 hyperintense left interpole cyst favored to represent hemorrhagic cysts. Additional T2 hyperintense bilateral simple renal cysts are noted. Otherwise prevertebral soft tissues are unremarkable. IMPRESSION: Right paracentral disc protrusion at L3-4 which abuts the right exiting L4 nerve root and results in mild spinal canal, moderate right lateral recess stenosis. The thecal sac abruptly tapers posterior to the L5 vertebral body possibly related to prominent epidural lipomatosis at L5-S1. Signed: Last Jensen [facility] Verified Date/Time: 08/05/2018 04:09:35 Reading Location: [facility] B1 C013T Transitional Reading Room
[2019-09-20] MEDS ORDERED: NA CHLORIDE 0.9% 3,000 ML ONE (19:35)
--- NOTE | 2019-09-20 20:08 | RAD REPORT ---
EXAM DESCRIPTION: RAD - Chest Single View - 09/20/2019 8:00 pm CLINICAL HISTORY: COUGH Chest pain. COMPARISON: Chest Pa And Lat (2 Views) dated 06/25/2018; CHEST PA AND LAT 2 VIEW dated 02/18/2010; CHES T PA AND LAT 2 VIEW dated 07/31/2006 FINDINGS: Portable technique limits examination quality. The lungs are grossly clear. The heart is normal in size. No displaced fractures. IMPRESSION: No acute intrathoracic process suspected.
[2019-09-20 20:25] LABS: Absolute Lymphocytes (CBC) 2.6 K/uL (0.7-4.9); Basophils % 0.6 % (0-1.3); Hematocrit 49.2 % (36.0-45.0); Lymphocytes % 27.3 % (15.3-44.8); MPV 8.7 fL (7.6-11.3); RBC Red Blood Cell Count 5.11 M/uL (3.86-4.86)
[2019-09-20 20:28] LABS: Protime INR 0.98
[2019-09-20 20:41] LABS: ALT/SGPT 13 U/L (12-78); AST/SGOT 15 U/L (15-37); Albumin 3.5 g/dL (3.4-5.0); Alkaline Phosphatase 84 U/L (45-117); Amylase Level 59 U/L (25-115); BUN Blood Urea Nitrogen 13 mg/dL (7-18); Bicarbonate 23 mmol/L (21-32); Bilirubin Direct < 0.1 mg/dL (0-0.2); Bilirubin Total 0.3 mg/dL (0.2-1.0); CKMB Creatine Kinase MB < 1.0 ng/mL (0.3-3.6); Creatine Phosphokinase 54 U/L (26-192); Glucose Level 113 mg/dL (74-106); Lipase 97 U/L (73-393); Potassium 3.5 mmol/L (3.5-5.1); Protein, Total 7.4 g/dL (6.4-8.2); Sodium Level 141 mmol/L (136-145); Troponin (Emerg Dept Use Only) < 0.02 ng/mL (0.0-0.045)
[2019-09-20] MEDS ORDERED: ACETAMINOPHEN 500 MG TAB ONE (21:01)
[2019-09-20] MEDS ORDERED: NA CHLORIDE 0.9% 250 ML ONE (21:02)
[2019-09-20] MEDS ORDERED: AZITHROMYCIN 500 MG INJ IVPB ONE (21:02)
[2019-09-20] MEDS ORDERED: CEFTRIAXONE/SWI 1gm 1 GM/10 ML SYR ONE (21:02)
[2019-09-20 21:06] LABS: Magnesium 2.2 mg/dL (1.8-2.4)
--- NOTE | 2019-09-20 22:10 | ER ---
Nurse's Notes [facility] Name: Genesis Villa Age: 58 yrs Sex: Female : 1960 Arrival Date: 09/20/2019 Time: 19:24 Bed 28 Private MD: Diagnosis: Fever, unspecified;Cough;Acute upper respiratory infection, unspecified Presentation: 09/19 19:25 Chief complaint: Patient states: cough, fever, headache, R ear pain x 2 days. nausea ca1 and diarrhea, sore throat x 3 days. Coronavirus screen: Surgical mask placed on patient. Patient moved to private room, placed in contact and droplet isolation with eye protection until further assessment. Patient reports a cough. Patient denies shortness of breath or difficulty breathing. Patient reports a measured and/or subjective temperature greater than 100.4F. Patient denies travel on a cruise ship or to a country the [facility] currently lists as an affected area. Patient denies contact with known and/or suspected case of COVID-19. Ebola Screen: Patient negative for fever greater than or equal to 101.5 degrees Fahrenheit, and additional compatible Ebola Virus Disease symptoms Patient denies exposure to infectious person. Patient denies travel to an Ebola-affected area in the 21 days before illness onset. No symptoms or risks identified at this time. Initial Sepsis Screen: Does the patient meet any 2 criteria? Temp <36.0*C (96.8*F)) or > 38.3*C (100.9*F). HR > 90 bpm. Yes Does the patient have a suspected source of infection? Yes: Productive cough/pneumonia If YES to both, name of provider notified: Otto Holt MD. Risk Assessment: Do you want to hurt yourself or someone else? Patient reports no desire to harm self or others. Onset of symptoms was September 20, 2019. 19:25 Method Of Arrival: Wheelchair ca1 19:25 Acuity: SCOTT 2 ca1 Historical: - Allergies: 19:28 No Known Allergies; ca1 - Home Meds: 19:28 None [Active]; ca1 - PMHx: 19:28 None; ca1 - PSHx: 19:28 Back Surgery x 2; ca1 - Immunization history:: Adult Immunizations up to date, Flu vaccine is not up to date. - Social history:: Smoking status: Patient reports the use of cigarette tobacco products, smokes one-half pack cigarettes per day. Screenin:28 Abuse screen: Denies threats or abuse. Denies injuries from another. Nutritional ca1 screening: No deficits noted. Tuberculosis screening: No symptoms or risk factors identified. Fall Risk IV access (20 points). Assessment: 20:00 General: Appears in no apparent distress. ill, Behavior is calm, cooperative. Pain: rv Complains of pain in abdomen, and headache. Neuro: Level of Consciousness is awake, alert, obeys commands, Oriented to person, place, time, situation. Cardiovascular: Patient's skin is warm and dry. Rhythm is sinus tachycardia. Respiratory: Airway is patent Respiratory effort is even, unlabored, Breath sounds are clear bilaterally. Derm: Skin is intact. 22:15 Reassessment: Patient appears in no apparent distress at this time. Patient and/or rv family updated on plan of care and expected duration. Pain level reassessed. Patient is alert, oriented x 3, equal unlabored respirations, skin warm/dry/pink. EXPLAINED TEST RESULTS AND GIVEN INSTRUCTIONS REGARDING COVID 19 TESTING AND PRECAUTIONS. Vital Signs: 19:25 BP 96 / 77; Pulse 126; Resp 19 S; Temp 101.2(TE); Pulse Ox 98% on R/A; Weight 72.57 kg ca1 (R); Height 5 ft. 4 in. (162.56 cm) (R); Pain 7/10; 20:30 BP 129 / 82; Pulse 95; Resp 22; Pulse Ox 98% on R/A; rv 21:15 BP 121 / 93; Pulse 98; Resp 22; Temp 99.4(O); Pulse Ox 98% on R/A; rv 22:00 BP 122 / 80; Pulse 95; Resp 20; Temp 99.4(O); Pulse Ox 99% on R/A; rv 22:05 BP 121 / 86 Supine; Pulse 91; Resp 17; Pulse Ox 99% on R/A; rv 22:10 BP 118 / 81 Sitting; Pulse 95; Resp 20; Pulse Ox 99% on R/A; rv 22:25 BP 124 / 86 Standing; Pulse 97; Resp 18; Pulse Ox 99% ; rv 19:25 Body Mass Index 27.46 (72.57 kg, 162.56 cm) ca1 ED Course: 19:24 Patient arrived in ED. ca1 19:25 Otto Holt MD is Attending Physician. gabi 19:27 Triage completed. ca1 19:28 Arm band placed on right wrist. ca1 19:28 Patient has correct armband on for positive identification. Placed in gown. Bed in low ca1 position. Call light in reach. Side rails up X2. cardiac nurse on. Pulse ox on. NIBP on. 19:28 No provider procedures requiring assistance completed. ca1 19:37 Carlo Wilder RN is Primary Nurse. rv 20:00 Inserted saline lock: 18 gauge in left antecubital area, using aseptic technique. Blood rv collected. 20:00 Initial lab(s) drawn, by me, sent to lab. First set of blood cultures drawn by me. rv 20:01 Chest Single View XRAY In Process Unspecified. EDMS 20:20 Second set of blood cultures drawn by me. rv 22:36 IV discontinued, intact, bleeding controlled, No redness/swelling at site. Pressure rv dressing applied. 09/20 10:00 Health Dept notified/ COVID test sent to lab/ PUI # [id number]/ lab notified. eb Administered Medications: 09/19 20:00 Drug: NS 0.9% (30 ml/kg) 30 ml/kg Route: IV; Rate: bolus; Site: left antecubital; rv 22:37 Follow up: Response: No adverse reaction; IV Status: Completed infusion; IV Intake: rv 2177ml 20:55 Drug: Tylenol 1000 mg Route: PO; rv 22:02 Follow up: Response: No adverse reaction rv 20:56 Drug: Rocephin 1 grams Route: IV; Rate: per protocol; Site: left antecubital; rv 22:02 Follow up: IV Status: Completed infusion rv 20:57 Drug: Zithromax 500 mg Route: IVPB; Infused Over: 1 hrs; Site: left antecubital; rv 22:33 Follow up: IV Status: Completed infusion; IV Intake: 250ml rv Intake: 22:33 IV: 250ml; Total: 250ml. rv 22:37 IV: 2177ml; Total: 2427ml. rv Outcome: 22:09 Discharge ordered by . gabi 22:34 Discharged to home ambulatory. rv 22:34 Condition: good 22:34 Discharge instructions given to patient, Instructed on discharge instructions, follow up and referral plans. medication usage, Demonstrated understanding of instructions, follow-up care, medications, Prescriptions given X 3. 22:36 Patient left the ED. rv Signatures: Dispatcher [employer] Otto Encarnacion MD MD cha Botello, Elizabeth eb Vicente, Ronaldo RN RN rv Chastity Corral RN RN ca1 Corrections: (The following items were deleted from the chart) 22: 20:30 General: Appears in no apparent distress. ill, Behavior is calm, cooperative, rv rv : 20:30 Pain: Complains of pain in abdomen, and headache rv rv : 20:30 Neuro: Level of Consciousness is awake, alert, obeys commands, Oriented to rv person, place, time, situation, rv : 20:30 Cardiovascular: Patient's skin is warm and dry. Rhythm is sinus tachycardia rv rv 20:30 Respiratory: Airway is patent Respiratory effort is even, unlabored, Breath rv sounds are clear bilaterally. rv : 20:30 Derm: Skin is intact, rv rv
--- NOTE | 2019-09-20 22:10 | EDPHYS ---
Physician Documentation [facility] Name: Genesis Villa Age: 58 yrs Sex: Female : 1960 Arrival Date: 09/20/2019 Time: 19:24 Bed 28 Private MD: AMARA Physician Otto Holt HPI: 09/19 19:45 This 58 yrs old Female presents to ER via Wheelchair with complaints of Fever. gabi 19:45 The patient reports fever, that was measured at 101 degrees Fahrenheit. Onset: The gabi symptoms/episode began/occurred 1 day(s) ago. Modifying factors: there are no obvious modifying factors. Associated signs and symptoms: Pertinent positives: arthralgias, cough. Severity of symptoms: At their worst the symptoms were. The patient has not experienced similar symptoms in the past. Historical: - Allergies: 19:28 No Known Allergies; ca1 - Home Meds: 19:28 None [Active]; ca1 - PMHx: 19:28 None; ca1 - PSHx: 19:28 Back Surgery x 2; ca1 - Immunization history:: Adult Immunizations up to date, Flu vaccine is not up to date. - Social history:: Smoking status: Patient reports the use of cigarette tobacco products, smokes one-half pack cigarettes per day. ROS: 19:47 Constitutional: Negative for fever, chills, and weight loss, Eyes: Negative for injury, gabi pain, redness, and discharge, ENT: Negative for injury, pain, and discharge, Neck: Negative for injury, pain, and swelling, Abdomen/GI: Negative for abdominal pain, nausea, vomiting, diarrhea, and constipation, Back: Negative for injury and pain, : Negative for injury, bleeding, discharge, and swelling, MS/Extremity: Negative for injury and deformity, Skin: Negative for injury, rash, and discoloration, Neuro: Negative for headache, weakness, numbness, tingling, and seizure, Psych: Negative for depression, anxiety, suicide ideation, homicidal ideation, and hallucinations, Allergy/Immunology: Negative for hives, rash, and allergies, Endocrine: Negative for neck swelling, polydipsia, polyuria, polyphagia, and marked weight changes, Hematologic/Lymphatic: Negative for swollen nodes, abnormal bleeding, and unusual bruising. 19:47 Cardiovascular: Positive for palpitations. Exam: 19:47 Constitutional: This is a well developed, well nourished patient who is awake, alert, gabi and in no acute distress. Head/Face: Normocephalic, atraumatic. Eyes: Pupils equal round and reactive to light, extra-ocular motions intact. Lids and lashes normal. Conjunctiva and sclera are non-icteric and not injected. Cornea within normal limits. Periorbital areas with no swelling, redness, or edema. ENT: Nares patent. No nasal discharge, no septal abnormalities noted. Tympanic membranes are normal and external auditory canals are clear. Oropharynx with no redness, swelling, or masses, exudates, or evidence of obstruction, uvula midline. Mucous membranes moist. Neck: Trachea midline, no thyromegaly or masses palpated, and no cervical lymphadenopathy. Supple, full range of motion without nuchal rigidity, or vertebral point tenderness. No Meningismus. Chest/axilla: Normal chest wall appearance and motion. Nontender with no deformity. No lesions are appreciated. Cardiovascular: Regular rate and rhythm with a normal S1 and S2. No gallops, murmurs, or rubs. Normal PMI, no JVD. No pulse deficits. Abdomen/GI: Soft, non-tender, with normal bowel sounds. No distension or tympany. No guarding or rebound. No evidence of tenderness throughout. Back: No spinal tenderness. No costovertebral tenderness. Full range of motion. Female : Normal external genitalia. Skin: Warm, dry with normal turgor. Normal color with no rashes, no lesions, and no evidence of cellulitis. MS/ Extremity: Pulses equal, no cyanosis. Neurovascular intact. Full, normal range of motion. Neuro: Awake and alert, GCS 15, oriented to person, place, time, and situation. Cranial nerves II-XII grossly intact. Motor strength 5/5 in all extremities. Sensory grossly intact. Cerebellar exam normal. Normal gait. Psych: Awake, alert, with orientation to person, place and time. Behavior, mood, and affect are within normal limits. 19:47 Respiratory: the patient does not display signs of respiratory distress, Respirations: labored breathing, that is mild, Breath sounds: are clear throughout, Respiratory rate: 20 Vital Signs: 19:25 BP 96 / 77; Pulse 126; Resp 19 S; Temp 101.2(TE); Pulse Ox 98% on R/A; Weight 72.57 kg ca1 (R); Height 5 ft. 4 in. (162.56 cm) (R); Pain 7/10; 20:30 BP 129 / 82; Pulse 95; Resp 22; Pulse Ox 98% on R/A; rv 21:15 BP 121 / 93; Pulse 98; Resp 22; Temp 99.4(O); Pulse Ox 98% on R/A; rv 22:00 BP 122 / 80; Pulse 95; Resp 20; Temp 99.4(O); Pulse Ox 99% on R/A; rv 22:05 BP 121 / 86 Supine; Pulse 91; Resp 17; Pulse Ox 99% on R/A; rv 22:10 BP 118 / 81 Sitting; Pulse 95; Resp 20; Pulse Ox 99% on R/A; rv 22:25 BP 124 / 86 Standing; Pulse 97; Resp 18; Pulse Ox 99% ; rv 19:25 Body Mass Index 27.46 (72.57 kg, 162.56 cm) ca1 MDM: 19:25 Patient medically screened. [facility] 19:50 Data reviewed: vital signs, nurses notes, lab test result(s), EKG, radiologic studies, gabi plain films. 09/19 19:30 Order name: Amylase, Serum; Complete Time: : ca1 09/19 19:30 Order name: Basic Metabolic Panel; Complete Time: : ca1 09/19 19:30 Order name: Blood Culture Adult (2) ca1 09/19 19:30 Order name: CBC with Diff; Complete Time: : ca1 09/19 19:30 Order name: Ckmb; Complete Time: : ca1 09/19 19:30 Order name: CPK; Complete Time: : ca1 09/19 19:30 Order name: Lactate; Complete Time: :29 ca1 09/19 19:30 Order name: LFT's; Complete Time: : ca1 09/19 19:30 Order name: Lipase; Complete Time: : ca1 09/19 19:30 Order name: Procalcitonin; Complete Time: 21:29 ca1 09/19 19:30 Order name: Protime (+inr); Complete Time: :29 ca1 09/19 19:30 Order name: Ptt, Activated; Complete Time: :[address] [facility] 09/19 19:30 Order name: Troponin (emerg Dept Use Only); Complete Time: 21:[address] [facility] 09/19 19:30 Order name: Urine Microscopic Only [facility] 09/19 19:30 Order name: Chest Single View XRAY; Complete Time: 21:[address] [facility] 09/19 19:30 Order name: Accucheck; Complete Time: 20:[address] [facility] 09/19 19:45 Order name: Magnesium; Complete Time: 21:29 [facility] 09/19 19:45 Order name: NT PRO-BNP; Complete Time: 21:29 [facility] 09/19 19:45 Order name: EKG; Complete Time: 19:46 [facility] 09/19 19:45 Order name: Strep; Complete Time: 21:29 [facility] 09/19 19:45 Order name: Influenza Screen (a \T\ B); Complete Time: 21:29 [facility] 09/19 19:45 Order name: COVID-19 [facility] 09/19 20:47 Order name: Glucose, Ancillary Testing; Complete Time: 21:29 [facility] 09/19 20:58 Order name: Throat Culture [facility] 09/19 21:30 Order name: Urine Culture [facility] 09/19 22:03 Order name: Urine Dipstick--Ancillary (enter results) [facility] 09/19 19:30 Order name: Cardiac monitoring; Complete Time: 20:[address] [facility] 09/19 19:30 Order name: EKG - Nurse/Tech; Complete Time: 20:[address] [facility] 09/19 19:30 Order name: IV Saline Lock - Large Bore; Complete Time: 20:[address] [facility] 09/19 19:30 Order name: Labs collected and sent; Complete Time: 20:[address] [facility] 09/19 19:30 Order name: O2 Per Protocol; Complete Time: 20:[address] [facility] 09/19 19:30 Order name: O2 Sat Monitoring; Complete Time: 20:[address] [facility] 09/19 19:45 Order name: IV Saline Lock; Complete Time: 20:48 [facility] 09/19 22:09 Order name: Orthostatics; Complete Time: 22:33 [facility] Administered Medications: 20:00 Drug: NS 0.9% (30 ml/kg) 30 ml/kg Route: IV; Rate: bolus; Site: left antecubital; rv 22:37 Follow up: Response: No adverse reaction; IV Status: Completed infusion; IV Intake: rv 2177ml 20:55 Drug: Tylenol 1000 mg Route: PO; rv 22:02 Follow up: Response: No adverse reaction rv 20:56 Drug: Rocephin 1 grams Route: IV; Rate: per protocol; Site: left antecubital; rv 22:02 Follow up: IV Status: Completed infusion rv 20:57 Drug: Zithromax 500 mg Route: IVPB; Infused Over: 1 hrs; Site: left antecubital; rv 22:33 Follow up: IV Status: Completed infusion; IV Intake: 250ml rv Disposition: 09/20/19 22:09 Discharged to Home. Impression: Fever, unspecified, Cough, Acute upper respiratory infection, unspecified. - Condition is Stable. - Discharge Instructions: Fever, Adult, Upper Respiratory Infection, Adult, Cough, Adult, [id number], Viral Respiratory Infection, [id number], Cough, Adult. - Prescriptions for Bromfed DM 2- 30-10 mg/5 mL Oral syrup - take 10 milliliter by ORAL route every 6 hours; 160 milliliter. Tylenol 325 mg Oral Tablet - take 3 tablet by ORAL route every 6 hours as needed; 1 bottle. Zithromax 500 mg Oral Tablet - take 1 tablet by ORAL route once daily for 4 days; 4 tablet. - Medication Reconciliation Form, Thank You Letter, Antibiotic Education, Prescription Opioid Use form. - Follow up: Private Physician; When: 2 - 3 days; Reason: Recheck today's complaints, Continuance of care, Re-evaluation by your physician. - Problem is new. - Symptoms have improved. Signatures: Dispatcher [employer] EDAL Otto Holt MD MD cha Vicente, Ronaldo, RN RN Chastity Silva RN RN ca1 Corrections: (The following items were deleted from the chart) 22:36 22:09 09/20/2019 22:09 Discharged to Home. Impression: Fever, unspecified; Cough; Acute rv upper respiratory infection, unspecified. Condition is Stable. Discharge Instructions: Fever, Adult, Upper Respiratory Infection, Adult, Cough, Adult, [id number], Viral Respiratory Infection, [id number]-[id number], Cough, Adult. Prescriptions for Bromfed DM 2-30-10 mg/5 mL Oral syrup - take 10 milliliter by ORAL route every 6 hours; 160 milliliter, Tylenol 325 mg Oral Tablet - take 3 tablet by ORAL route every 6 hours as needed; 1 bottle, Zithromax 500 mg Oral Tablet - take 1 tablet by ORAL route once daily for 4 days; 4 tablet. and Forms are Medication Reconciliation Form, Thank You Letter, Antibiotic Education, Prescription Opioid Use. Follow up: Private Physician; When: 2 - 3 days; Reason: Recheck today's complaints, Continuance of care, Re-evaluation by your physician. Problem is new. Symptoms have improved. gabi
[2019-09-20 22:18] LABS: Urine Blood NEGATIVE (NEG); Urine Glucose NEGATIVE (NEG); Urine Protein NEGATIVE (NEG); Urine Specific Gravity >1.030 (1.005-1.030)
[2019-09-20 22:18] LABS: Urine Bacteria <20 /HPF (<20); Urine Culture Reflex Order NOT NEEDED; Urine Mucus 1+ /HPF (NONE SEEN); Urine RBC NONE SEEN /HPF (NONE SEEN)
[2019-09-20 22:47] VITALS: TEMP 99.4
[2019-09-20 22:49] VITALS: O2SAT 99
[2019-09-20 22:53] VITALS: BP 124/86
--- NOTE | 2019-09-22 08:08 | EKG ---
Test Date: 2019-09-20 Test Time: 20:08:14 Grinder Operator: OMARI MEASUREMENT RESULTS: Intervals: Rate: 95 MA: 148 QRSD: 76 QT: 340 QTc: 427 [place]: P: 72 MA: 148 QRS: 95 T: 73 INTERPRETIVE STATEMENTS: Normal sinus rhythm Possible Left atrial enlargement Rightward axis Borderline ECG Compared to ECG 12/26/2013 13:52:30 No significant changes Electronically Signed On 09-22-19 08:07:53 CDT by Champ Drummond
== END 2019-09-20 22:36 | disposition home or self-care (01) ==
LOC: ER 19:12
DX: J06.9 Acute upper respiratory infection, unspecified (principal); R05 Cough; F17.210 Nicotine dependence, cigarettes, uncomplicated; Z03.818 Encounter for observation for suspected exposure to other biological agents ruled out
CPT/HCPCS: 96365; 96367; 93005; 87040 ×2; 87070; 87088; 85025; 87086; 80048; 36415; 82150; 83735; 82550; 85610; 82947; 80076; 87081; 83605; 85730; 84484; 82553; 83690; 84145; 83880; 87804 ×2; 71045; 99284; U0001; J0456; J0696; J7030 ×2; 81003; 81015

== ENCOUNTER 2020-09-11 08:21 | Day surgery (SDC) | payer BC ==
--- NOTE | 2020-09-09 17:03 | EKG ---
Test Date: 2020-09-08 Test Time: 14:12:45 Production Shift Supervisor: MITA MEASUREMENT RESULTS: Intervals: Rate: 71 MA: 162 QRSD: 78 QT: 390 QTc: 423 [place]: P: 78 MA: 162 QRS: 95 T: 76 INTERPRETIVE STATEMENTS: Normal sinus rhythm Rightward axis Borderline ECG Compared to ECG 09/20/2019 20:08:14 No significant changes Electronically Signed On 09-09-20 17:00:40 CDT by Champ Drummond
[2020-09-11] MEDS ORDERED: DIAZEPAM 5 MG TABLET ONE (09:30)
[2020-09-11] MEDS ORDERED: Ringers Lactate 1,000 ML IV ONE (09:31)
[2020-09-11] MEDS ORDERED: LIDOCAINE 2% MPF 5 ML VIAL ONE (09:58)
[2020-09-11] MEDS ORDERED: MIDAZOLAM HCL 2 MG/2 ML INJ ONE (09:58)
[2020-09-11] MEDS ORDERED: FENTANYL CITR 100 MCG/2 ML ONE (09:58)
[2020-09-11] MEDS ORDERED: ROCURONIUM 50 MG/5 ML VIAL IV ONE (09:58)
[2020-09-11] MEDS ORDERED: dexAMETHasone 10 MG/ML VIAL ONE (09:58)
[2020-09-11] MEDS ORDERED: propofoL 200 MG/20 ML VIAL IV ONE (09:58)
[2020-09-11] MEDS ORDERED: LABETALOL 20 MG/4ML SYRINGE IV ONE (11:00)
[2020-09-11] MEDS ORDERED: EPINEPHRINE/PF 1 MG/ML AMP ONE (11:19)
[2020-09-11] MEDS ORDERED: NA CHLORIDE 0.9% 500 ML ONE (12:00)
[2020-09-11 12:04] VITALS: TEMP 97
[2020-09-11] MEDS ORDERED: ONDANSETRON 4 MG/2 ML VIAL ONE (12:27)
[2020-09-11] MEDS ORDERED: PROMETHAZINE INJ 25 MG/ML AMP ONE (12:34)
[2020-09-11 12:43] VITALS: BP 120/82; O2SAT 94
[2020-09-11] MEDS ORDERED: ACETAMINOPHEN 325 MG TABLET PO ONE (13:05)
[2020-09-11] MEDS ORDERED: ACETAMINOPHEN 325 MG TABLET ONE (13:19)
--- NOTE | 2020-09-11 14:46 | OP ---
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 Direct microlaryngoscopy with telescope and removal of vocal cord tumor. 2. Nasal endoscopy with biopsy of nasopharynx. Indication For Procedure: Genesis presented with a complaint of persistent hoarseness. Due to her tobacco use and quality of voice, a flexible laryngoscopy was performed in the office demonstrating an irregular lesion on the left true vocal fold and a lesion in the left fossa of Rosenmueller. The risks, benefits, and alternatives of the procedure were discussed with the patient who agreed to proceed. Description Of Procedure In Detail: The patient was brought to the operating room. She was placed under general anesthesia via oral endotracheal tube. An exam under anesthesia was performed demonstrating very poor dentition with significant cavities, periodontal disease, and broken teeth. The mucosal surface of the lips, gingiva, palate, floor of mouth, uvula, posterior pharyngeal wall appeared normal with no significant ulcerations. A [employer] laryngoscope was used to perform a direct laryngoscopy after placement of a rubber upper tooth guard. The laryngoscope was positioned for exposure of the glottis and suspended from the Knight stand. The lesion was best identified with manual pressure externally on the left larynx and photodocumentation of the lesion was obtained. A large cup forceps was used to remove and debulk the mass which appeared irregular and warty in nature and appeared isolated to the left anterior vocal fold, but not involving the anterior commissure. There were no other lesions noted in other parts of the larynx, though I was suspicious for a papilloma. A small straight and angled cup forceps were used to remove additional fragments of the lesion and epinephrine soaked pledget was applied to the cut biopsy surfaces and the laryngoscope was relaxed and removed leaving the pledgets in place while preparation of other equipment was performed. While awaiting the preparation of other equipment, a 0 degree rigid nasal endoscope was used to perform a nasal endoscopy. The inferior and middle turbinates were unremarkable. The middle meatus appeared clear. There was some mild septal deviation. The scope was advanced to the nasopharynx, where there was a cystic appearing mass within the left fossa of Rosenmuller. Photodocumentation of this lesion was obtained. A Blakesley forceps was used to grasp the wall of the cystic lesion and fragment of this mucosa was removed. A moderate amount of thick white mucus was noted and suctioned. An epinephrine- soaked pledget was packed into the fossa of Rosenmuller for several minutes to aid in control of hemostasis. After several minutes, the pledget was removed and the area was suctioned and photodocumentation was obtained which demonstrated resolution of the cystic mass. Attention was then turned back to the larynx. The [facility] laryngoscope was again used to perform a direct laryngoscopy. After placement in suspension, the left vocal cord was carefully lateralized for better visualization of the subglottis. There was a small amount of residual lesion noted on the undersurface of the vocal cord, but not extending into the subglottic mucosa. The laryngeal Outside Deliverer blade was attached to the microdebrider and was used to judiciously remove portions of the tumor. Careful attention was made to avoid removing any normal appearing mucosa and deeper aspects of the vocal fold. On the mid left vocal fold, there was mild thickening and decision was made not to completely remove this area with hopes of preserving vocal function and epinephrine-soaked pledget was again applied to the base of the left vocal fold surface for several minutes to aid in hemostasis. After removal, the area was examined. Overall, the patient had edema and hypervascularity of both vocal cords with overall degrees of mucosal inflammation consistent with current tobacco use. There were no other suspicious or concerning lesions noted. The laryngoscope was slowly withdrawn. The tooth guard was removed. All pledget counts were confirmed by the nursing staff and reported as correct. Upon removal of the laryngoscope, there was a pressure ulceration and superficial laceration of the left lower lip due to pressure from the laryngoscope. There was no significant bleeding and no suture repair was required. The patient was returned to care of Anesthesia for awakening and extubation in the operating room, which proceeded without difficulty. Disposition: The patient will be discharged home later today in the care of her family and follow up with Dr. Tatum in 10 days for further evaluation, management, and discussion of pathology. The patient is instructed in strict voice rest for 3 days with minimal voice use for 7 additional days following. The patient is strongly encouraged for tobacco cessation. LUIS/FELIX Voice ID: [id number] Report ID: [id number] WALT
== END 2020-09-11 13:46 | disposition home or self-care (01) ==
LOC: OR 08:21
PROVIDERS: ATTEND Otolaryngology
PROC: 09BK8ZX Excision of Nasal Mucosa and Soft Tissue, Via Natural or Artificial Opening Endoscopic, Diagnostic (ICD-10-PCS; 2020-09-11)
PROC: 0CBV8ZZ Excision of Left Vocal Cord, Via Natural or Artificial Opening Endoscopic (ICD-10-PCS; principal; 2020-09-11 10:15)
DX: J38.3 Other diseases of vocal cords (principal); D37.05 Neoplasm of uncertain behavior of pharynx; Z20.822 Contact with and (suspected) exposure to COVID-19
CPT/HCPCS: 31541; 93005; 88305; 31237; U0002; J2704; J0171; J2550; J3010; J1100; J7120; J7040; J2405; J2250